=== PATIENT | male | born 1965 | race Caucasian/White ===

== ENCOUNTER 2016-11-12 12:57 | Inpatient (IN) | payer OTHER ==
[~2016-11-12] VITALS: Ht 172.7 cm; Wt 66.5 kg
--- NOTE | ~2016-11-12 | D ---
[facility] [place] [address] DISCHARGE SUMMARY Name: GINNY SMITH Room #: 431-P [facility] IN M.R.#: [id number] Admission: 11/12/16 Attend Phys: Loi Daniel Discharge: 11/15/16 Date of : 67 Report #: [id number] THIS REPORT FOR: //name// CC: Kulwant Coleman [facility] physician/PCP FINAL DIAGNOSES: 1. Osteomyelitis of the right hip. 2. Chronic incomplete quadriplegia. PROCEDURES: Incision, debridement, and resection of partial greater trochanter, right hip with wound closure in layers. HOSPITAL COURSE: The patient was admitted for surgical debridement and treatment of his right hip. Please see the operative note by Dr. Goddard. Postoperatively, he had no complications. He continued usual medications and antibiotics. He was followed by Dr. Ramírez for wound care. PHYSICAL EXAMINATION: GENERAL: On the day of discharge, he was awake and alert, in no distress. LUNGS: Clear. HEART: Regular. ABDOMEN: Soft. EXTREMITIES: Showed no edema. His wounds were dressed and closed. DISPOSITION: Return to [facility] facility under the care of his previous physician. Wound care to follow. IV antibiotics. To continue same medications plus Lovenox for DVT prophylaxis. <ELECTRONICALLY SIGNED> By: Rodrigue Rowell MD 11/16/16 0835 0840 1050 Rodrigue Rowell MD /sj
--- NOTE | ~2016-11-12 | H ---
[facility] [place] [address] HISTORY AND PHYSICAL Name: GINNY SMITH Room #: 431-P ADM IN M.R.#: [id number] Admission: 11/12/16 Attend Phys: Loi Daniel Discharge: Date of : 67 Report #: [id number] THIS REPORT FOR: //name// CC: Kulwant Coleman [facility] physician/PCP DATE OF SERVICE: 11/12/2016 CHIEF COMPLAINT: Right hip wound. HISTORY OF PRESENT ILLNESS: The patient is a 51-year-old gentleman, who was transferred from [facility] facility for evaluation of a right hip wound. He had an ulcer for several months. He had a recent MRI that showed osteomyelitis of the greater trochanter. After discussion with Dr. Ramírez and Dr. Coleman, he has been admitted for surgical debridement. Dr. Goddard has taken him to the OR early this morning for said procedure. Please see his dictated operative note. PAST MEDICAL HISTORY: Chronic quadriplegia and tracheostomy. PAST SURGICAL HISTORY: Unknown. FAMILY HISTORY: Unknown. SOCIAL HISTORY: No known chronic alcohol or tobacco abuse. ALLERGIES: SULFA, BACLOFEN, and DANTROLENE. MEDICATIONS: Zosyn, Lipitor, hydrocodone, Tylenol, Seroquel, Valium, simethicone, Senokot, Pepcid, and melatonin. REVIEW OF SYSTEMS: He complains of hearing loss, troubled sleeping. Denies headache, chest pain, shortness of breath, abdominal pain, nausea, vomiting, diarrhea, constipation, dysuria, or syncope. OBJECTIVE: VITAL SIGNS: Temperature of 36.6, pulse 79, respirations 16, blood pressure 87/58, O2 sat 97% on room air. GENERAL: He is awake and alert, in no distress. HEAD AND NECK: Unremarkable. Other than, trach in place which is capped. LUNGS: Clear. HEART: Regular. ABDOMEN: Soft, normoactive bowel sounds. EXTREMITIES: No edema. NEUROLOGIC: Quadriparesis throughout with some contractures of the hands and fingers bilaterally. [address] [address] HISTORY AND PHYSICAL Name: GINNY SMITH Room #: 431-P [facility] IN M.R.#: [id number] Admission: 11/12/16 Attend Phys: Loi Daniel Discharge: Date of : 67 Report #: [id number] LABORATORY DATA: Reviewed. ASSESSMENT: 1. Osteomyelitis of the right greater trochanter. 2. Wound of the right hip. 3. Chronic quadriplegia. PLAN: Continue his medications and antibiotics for now. I will see once he is surgically stable and reconfirm back to [facility] for ongoing wound care. <ELECTRONICALLY SIGNED> By: Rodrigue Rowell MD 11/13/16 1813 1659 1734 Rodrigue Rowell MD /nt
--- NOTE | ~2016-11-12 | S ---
[facility] [place] [address] SURGICAL PATH RPT PROCEDURE Name: GINNY NOLASCO Room #: 431-P [facility] IN M.R.#: [id number] Admission: 11/12/16 Date of : 67 Discharge: 11/15/16 Report #: [id number] Path Case #: [id number] PATHOLOGY REPORT COLLECTION DATE: 11/13/2016 RECEIVED DATE: 11/13/2016 SUBMITTING PHYS: Dr. Ja Goddard OTHER PHYS: Dr. Kulwant Coleman SPECIMEN(S) RECEIVED: A.Right trochanter * * * * * * * * * * * * FINAL DIAGNOSIS: A. Bone, right trochanter, resection: - Consistent with acute osteomyelitis, history of ulcer. PATHOLOGIST: Margaret Humphreys M.D. REPORT ELECTRONICALLY SIGNED BY: Margaret Humphreys M.D. DATE/TIME: 11/15/2016 15:42 * * * * * * * * * * * * GROSS PATHOLOGY: The specimen is received in formalin labeled "Ginny Nolasco, right trochanter". Received are multiple segments of light prabhakar bone displaying pink-thakkar, granular to irregular in contour possible articulating surfaces measuring 5.5 x 5.3 x 2.5 cm in aggregate dimensions. The specimen is submitted representatively in cassette A1, following decalcification. (CAA; 11/14/2016) CLINICAL HISTORY: Right hip osteomyelitis INITIAL CPT CODE(S): A; 60195, 84687 Professional services performed by [facility] at [facility] [address], [place] [address] Technical services performed by [facility] at [address] [place] [id number]. [facility] [address] [place] [address] SURGICAL PATH RPT PROCEDURE Name: GINNY NOLASCO Room #: 431-P [facility] IN M.R.#: [id number] Admission: 11/12/16 Date of : 67 Discharge: 11/15/16 Report #: [id number] Path Case #: [id number] [address] PHONE: [phone] DIRECTOR: Jareth Gonzalez M.D. * * * END OF REPORT * * *
--- NOTE | ~2016-11-12 | HC ---
[facility] [address] CONSULTATION Name: GINNY SMITH Room #: 431-P ADM IN M.R.#: [id number] Admission: 11/12/16 Attend Phys: Loi Daniel Discharge: Date of : 67 Report #: [id number] THIS REPORT FOR: //name// CC: Kulwant Coleman [facility] physician/PCP DATE OF SERVICE: 11/12/2016 REASON FOR CONSULTATION: Right hip decubitus ulcer with exposed trochanteric bone. HISTORY OF PRESENT ILLNESS: The patient is a 51-year-old gentleman who had an ulcer over his right hip for several months now. He is being treated with wound care as well as IV antibiotics and was recently at [facility]. He had an MRI scan showing him to have osteomyelitis of the greater trochanter and after discussion with Dr. Andrea Ramírez, he has been admitted for debridement, irrigation with possible resection of the greater trochanteric area versus Girdlestone. PAST MEDICAL HISTORY: Significant for quadriplegia as well as a tracheostomy. CURRENT MEDICATIONS: Have been reviewed and are on the chart. SOCIAL HISTORY: Denies smoking or illicit drug use. PHYSICAL EXAMINATION: GENERAL: This is a frail-appearing male in no acute distress. He is alert and oriented. EXTREMITIES: Examination of the right hip shows to have an approximately 7 x 7 cm stage IV decubitus ulcer directly over his greater trochanter. There is exposed bone that is palpable and visible. He does not have sensory or motor control of his right lower extremity. ASSESSMENT: Stage IV decubitus ulcer over the right greater trochanter. PLAN: We would like try to get his MRI scan from [facility] for my review to evaluate how much bone needs to be resected. Hopefully, this can be done tonight. I have him on the schedule for tomorrow morning at 10:00 a.m. for debridement and irrigation of the right hip with resection of the greater trochanter versus possible Girdlestone. I check his AP pelvis x-ray of his hip for baseline purposes. He will be n.p.o. after midnight for surgery tomorrow. [facility] [address] [place] [address] CONSULTATION Name: SARAHGINNY SANZ Room #: 431-P ADM IN M.R.#: [id number] Admission: 11/12/16 Attend Phys: Loi Daniel Discharge: Date of : 67 Report #: [id number] Thanks for allowing me to participate in care of the patient. <ELECTRONICALLY SIGNED> By: Ja Goddard MD 11/13/16 0727 1720 0138 Ja Goddard MD /nt
--- NOTE | ~2016-11-12 | O ---
[facility] [place] [address] OPERATIVE REPORT Name: SARAHANGIGINNY Room #: 431-P ADM IN M.R.#: [id number] Admission: 11/12/16 Attend Phys: Loi Daniel Discharge: Date of : 67 Report #: [id number] THIS REPORT FOR: //name// CC: Kulwant Coleman [facility] physician/PCP DATE OF SERVICE: 11/13/2016 PREOPERATIVE DIAGNOSIS: Right hip stage IV decubitus ulcer with greater trochanteric osteomyelitis. POSTOPERATIVE DIAGNOSIS: Right hip stage IV decubitus ulcer with greater trochanteric osteomyelitis. PROCEDURE: 1. Debridement and irrigation of right hip stage IV decubitus ulcer. 2. Resection of right greater trochanter. 3. Closure in layers of the right hip. Final length was 14 cm. SURGEON: Ja Goddard MD. DISPATCHER MOTOR VEHICLE: Hayley Coe PA-C. ANESTHESIA: General. ESTIMATED BLOOD LOSS: 50 mL. SPECIMENS: Greater trochanteric bone was sent for pathology. COMPLICATIONS: None. CONDITION UPON LEAVING THE OPERATING ROOM: Stable. INDICATIONS FOR PROCEDURE: The patient is a 51-year-old gentleman, who is a quadriplegic. He has had a stage IV decubitus ulcer over his right greater trochanter with evidence of osteomyelitis of the greater trochanter. He had been admitted for debridement, irrigation, and resection of his greater trochanter. DESCRIPTION OF PROCEDURE: Risks, benefits, alternatives, and complications were discussed in detail with the patient including but not limited to risk of anesthesia, risk of damage to nerves, arteries, blood vessels, risk for continued infection, blood loss, and need for reoperation. An informed consent was obtained from the patient's father, who is the DPOA. Right hip was appropriately marked in the preoperative holding area. IV clindamycin was given for preoperative antibiotics. He was brought to the operating room, and [address] [address] OPERATIVE REPORT Name: GINNY SMITH Room #: 431-P ADM IN .R.#: [id number] Admission: 11/12/16 Attend Phys: Loi Daniel Discharge: Date of : 67 Report #: [id number] anesthesia was induced without complications and was transferred to the operating room table, and placed in the left lateral decubitus position. Right hip and lower extremity were prepped and draped in the normal sterile fashion. A timeout was performed properly identifying the patient and procedure, as well as the instrumentation. All in the operating room were in agreement. There was an approximately 5 cm stage IV ulcer over the lateral aspect of the right hip with granulating tissue around the edges. It was decided to extend this ulcer proximally and distally in a T-type fashion. Dissection was taken down with Bovie cautery to the fascia on either side of the ulcer, and the fascia was divided with Bovie cautery. The Charnley retractor was placed for visualization, and there was obvious exposed greater trochanter in this area. The posterior short external rotators were dissected off the greater trochanter with Bovie cautery. The abductor musculature and tendons were dissected off. The greater trochanter was then removed using an oscillating saw and smoothed back with a rongeur. This bone was sent for pathology. After this, the wound and bone were thoroughly irrigated with normal saline. Deep fascia was adherent to the edges of the ulcer, and this was dissected down with Bovie cautery, making 2 separate layers of the skin and fascia. The fascia was then closed over a drain with 0 Vicryl sutures. The skin was closed with 2-0 nylon suture. Soft dressing of Adaptic, 4x4, ABD, and Medipore tape were applied. The patient tolerated this procedure well and went to the recovery room under the care of anesthesia postoperatively. <ELECTRONICALLY SIGNED> By: Ja Goddard MD 11/14/16 1830 1248 1522 Ja Goddard MD /nt
[2016-11-12 16:32] VITALS: BP 102/67
[2016-11-12] MEDS ORDERED: ATORVASTATION PO (17:24)
[2016-11-12] MEDS ORDERED: FAMOTIDINE PO (17:33)
[2016-11-12] MEDS ORDERED: DIAZEPAM PO (17:33)
[2016-11-12] MEDS ORDERED: JUVEN PO (17:34)
[2016-11-12] MEDS ORDERED: PIPERACIL-TA3.375 G1 IV (17:35)
[2016-11-12] MEDS ORDERED: MELATONIN PO (17:35)
[2016-11-12] MEDS ORDERED: SENNA/DOCUSATE PO (17:36)
[2016-11-12] MEDS ORDERED: QUETIAPINE PO (17:36)
[2016-11-12] MEDS ORDERED: HYDROCODONE-APA1 TA1 PO (17:38)
[2016-11-12] MEDS ORDERED: ACETAMINOPHEN PO (17:38)
[2016-11-12] MEDS ORDERED: GAS RELIEF80 MG PO (17:39)
[2016-11-12] MEDS ORDERED: ATROPINE (17:40)
[2016-11-12] MEDS ORDERED: CHLORHEXIDINE PO (17:41)
[2016-11-12 20:00] VITALS: BP 116/79
[2016-11-13] VITALS (9 sets, daily range): BP systolic 77–137; BP diastolic 47–94
[2016-11-13 13:15] LABS: HEMATOCRIT 33.5 % (42.0-52.0); HEMOGLOBIN 11.2 gm/dL (14.0-18.0); MCH 29.1 pg (26.0-34.0); MCHC 33.3 g/dL (28.0-37.0); MCV 87.2 fL (80.0-100.0); RBC 3.84 mil/uL (4.50-6.00); RDW 15.3 % (10.5-14.5); WBC 11.1 thou/uL (4.0-11.0)
[2016-11-14 04:26] VITALS: BP 74/49
[2016-11-14 05:14] VITALS: BP 88/52
[2016-11-14 06:26] LABS: HEMATOCRIT 28.4 % (42.0-52.0); HEMOGLOBIN 9.7 gm/dL (14.0-18.0); MCH 29.8 pg (26.0-34.0); MCV 87.5 fL (80.0-100.0); RBC 3.25 mil/uL (4.50-6.00)
[2016-11-14 06:42] LABS: CALCIUM 8.8 mg/dL (8.5-10.1); CREATININE 0.8 mg/dL (0.7-1.3); POTASSIUM 3.6 mmol/L (3.5-5.1)
[2016-11-14 08:00] VITALS: BP 109/69
[2016-11-14 15:59] VITALS: BP 104/73
[2016-11-14 20:00] VITALS: BP 96/52
[2016-11-15 05:30] VITALS: BP 107/68
[2016-11-15 06:04] LABS: HEMOGLOBIN 8.9 gm/dL (14.0-18.0); MCH 29.8 pg (26.0-34.0); MCHC 34.3 g/dL (28.0-37.0); RBC 2.99 mil/uL (4.50-6.00); RDW 15.2 % (10.5-14.5); WBC 6.7 thou/uL (4.0-11.0)
[2016-11-15 07:56] VITALS: BP 100/68
[2016-11-15] MEDS ORDERED: SENNA PO (08:33)
[2016-11-15] MEDS ORDERED: SEROQUEL 25 MG25 M1 PO (08:33)
[2016-11-15] MEDS ORDERED: DIAZEPAM 10 MG10 M1 PO (08:33)
[2016-11-15] MEDS ORDERED: MELATONIN5 M1 PO (08:34)
[2016-11-15] MEDS ORDERED: PEPCID20 MG PO (08:34)
[2016-11-15] MEDS ORDERED: APAP650 PO (08:35)
[2016-11-15] MEDS ORDERED: ENOXAPARIN40 MG/0.1 SUBQ (08:40)
[2016-11-15 11:10] VITALS: BP 100/68
== END 2016-11-15 13:24 | DRG 480 ==
LOC: 4E 12:57
PROVIDERS: Internal Medicine Geriatric Medicine; Orthopaedic Surgery
PROC: 0QT60ZZ Resection of Right Upper Femur, Open Approach (ICD-10-PCS; principal; 2016-11-13)
DX: M86.8X8 Other osteomyelitis, other site (principal); L89.214 Pressure ulcer of right hip, stage 4; G82.50 Quadriplegia, unspecified; E44.0 Moderate protein-calorie malnutrition; Z93.0 Tracheostomy status; Z88.2 Allergy status to sulfonamides; Z88.8 Allergy status to other drugs, medicaments and biological substances; Z68.22 Body mass index [BMI] 22.0-22.9, adult
CPT/HCPCS: 10783; 50010; 50101; 50382; 50414; 50612; 53000; 53078; 56525; 56528; 62110; 62900; 70005